=== PATIENT | male | born 1955 | race Caucasian/White ===

== ENCOUNTER → 2017-10-17 10:42 | Emergency (ER) | payer BC ==
[~2017-10-17 10:42] MED LIST: Ketorolac INJ* 30 MG/ML 1 ML VIAL IM ONE
[2017-10-17 11:18] VITALS: BP 156/100
--- NOTE | 2017-10-17 12:05 | UC ---
Back Pain HPI - HPI Summary HPI Summary: Pt presents with left rib and lower back pain. He tells me that 6 days ago he was carrying food and tripped over a plant on the ground. Landed on his left side ribs, had immediate pain. Pain improved as the day continued. Yesterday he felt the pain worsen in his left side and wants to be sure he didn't "break a rib". He has not been taking anything for the pain. He denies headache, dizziness, SOB, chest pain, or cough. He also complains of LBP, but this is unrelated to the recent fall. He has had chronic low back pain for years, but recently has been "acting up" more than usual. Feels tight with dull aches at times. Worse with movement. No bowel or bladder incontinence. No numbness, tingling, or radiation of pain. - History of Current Complaint Hx Obtained From: Patient Onset/Duration: Sudden Onset Timing: Constant Severity Initially: Mild Severity Currently: Mild Pain Intensity: 3 Pain Scale Used: 0-10 Numeric Character: Sharp, Dull, Aching <David Colindres - Last Filed: 10/17/17 15:13> <Yaquelin Phillip - Last Filed: 10/18/17 14:32> - History of Current Complaint Chief Complaint: UCTrauma Stated Complaint: POSS BROKEN RIB Time Seen by Provider: 10/17/17 12:04 - Allergies/Home Medications Allergies/Adverse Reactions: Allergies Allergy/AdvReac Type Severity Reaction Status Date / Time No Known Allergies Allergy Verified 12/28/15 10:10 PMH/Surg Hx/FS Hx/Imm Hx Previously Healthy: Yes - Surgical History Surgical History: Yes Surgery Procedure, Year, and Place: RIGHT KNEE ARTHROSOCPY X 2. LEFT KNEE ARTHROSCOPY X 1. VASECTOMY. LEFT WRIST WITH PLATE. Left hip replacement 2014 - Social History Lives: With Family Alcohol Use: Daily Alcohol Amount: "a few beers every day " Substance Use Type: None Smoking Status (MU): Never Smoked Tobacco - Immunization History Most Recent Influenza Vaccination: 2014 Most Recent Tetanus Shot: 2005 Most Recent Pneumonia Vaccination: HAS NOT HAD <David Colindres - Last Filed: 10/17/17 15:13> Review of Systems Constitutional: Negative Skin: Negative Eyes: Negative ENT: Negative Respiratory: Negative Cardiovascular: Negative Gastrointestinal: Negative Genitourinary: Negative Neurovascular: Negative Musculoskeletal: Other: - LBP. Left rib pain. Neurological: Negative Psychological: Negative All Other Systems Reviewed And Are Negative: Yes <David Colindres - Last Filed: 10/17/17 15:13> Physical Exam Triage Information Reviewed: Yes Appearance: Well-Appearing, Well-Nourished Vital Signs: Initial Vital Signs Temp 99.1 F 10/17/17 11:08 Pulse 97 10/17/17 11:08 Resp 18 10/17/17 11:08 BP 156/100 10/17/17 11:08 Pulse Ox 98 10/17/17 11:08 Vital Signs Reviewed: Yes Neck: Positive: Supple, No Lymphadenopathy, Other: - NTTP. FROM. Respiratory: Positive: Chest non-tender, Lungs clear, Normal breath sounds, No respiratory distress, No accessory muscle use Cardiovascular: Positive: RRR, No Murmur, Pulses Normal Abdomen Description: Positive: Nontender, No Organomegaly, Soft. Negative: CVA Tenderness (R), CVA Tenderness (L), Distended, Guarding Bowel Sounds: Positive: Present Musculoskeletal: Positive: Strength Intact, ROM Intact, No Edema, Other: - TTP lower paraspinal muscles. Pain with spine flexion. TTP over left ~9th-10th rib. No obvious bony deformities. Neurological: Positive: Alert Psychological: Positive: Age Appropriate Behavior Skin: Negative: rashes, significant lesion(s) <David Colindres - Last Filed: 10/17/17 15:13> Vital Signs: Initial Vital Signs Temp 99.1 F 10/17/17 11:08 Pulse 97 10/17/17 11:08 Resp 18 10/17/17 11:08 BP 156/100 10/17/17 11:08 Pulse Ox 98 10/17/17 11:08 <Yaquelin Phillip - Last Filed: 10/18/17 14:32> Back Pain Course/Dx - Course Course Of Treatment: XRs: IMPRESSION: Lumbar: Bridging syndesmophytes at multiple levels with no evidence of fracture. Straightening of the normal lordosis. Ribs: Negative. Pt advised to take ibuprofen for pain. IM toradol given today. F/u with PCP regarding chronic LBP and HTN. - Differential Dx/Diagnosis Differential Diagnosis/HQI/PQRI: Arthritis, Cauda Equina Syndrome, Herniated Disc, Strain, Sprain, Other Provider Diagnoses: LBP. Rib pain. Fall <David Colindres - Last Filed: 10/17/17 15:13> Discharge <David Colindres - Last Filed: 10/17/17 15:13> <Yaquelin Phillip - Last Filed: 10/18/17 14:32> - Discharge Plan Condition: Stable Disposition: HOME Patient Education Materials: Low Back Strain (ED), Lower Back Exercises (ED), Rib Contusion (ED) Referrals: Anderson Garcia MD [Primary Care Provider] - Additional Instructions: If you develop a fever, SOB, chest pain, new or worsening symptoms - please call your PCP or go to the ED. May take ibuprofen 600mg every 6 hours as needed for pain Your blood pressure was high at todays visit. Please see your primary provider within 4 weeks for recheck and re-evaluation. Attestation Statement User Type: Provider - I was available for consult. This patient was seen by the BR[facility]GETTE. The patient was not presented to, seen by, or examined by me. -Pushpa <Yaquelin Phillip - Last Filed: 10/18/17 14:32>
--- NOTE | 2017-10-17 12:34 | RAD ---
Indication: Fall, back pain. 5 views of lumbar spine demonstrates vertebral bodies to be normal in height. Disc space narrowing at T12-L1, L1-L2, L2-L3, L3-L4 and L4-L5 with ventral osteophyte formation is noted. Pedicles appear intact. There is straightening of the normal lordosis. IMPRESSION: Bridging syndesmophytes at multiple levels with no evidence of fracture. Straightening of the normal lordosis.
--- NOTE | 2017-10-17 12:39 | RAD ---
Indication: Left rib pain. 3 views of left ribs demonstrate no fracture. No significant displacement is noted. PA view of the chest demonstrates no pneumothorax. IMPRESSION: No fracture of left ribs is identified.
== END | disposition home or self-care (01) ==
LOC: UCEAST 10:42
DX: M54.5 Low back pain (principal); R07.81 Pleurodynia; Z72.89 Other problems related to lifestyle; W01.0XXA Fall on same level from slipping, tripping and stumbling without subsequent striking against object, initial encounter; Y93.01 Activity, walking, marching and hiking; Y92.9 Unspecified place or not applicable; Y99.9 Unspecified external cause status
CPT/HCPCS: 72110; 96372; 99211; G0463; J1885

== ENCOUNTER 2019-01-08 08:28 | Emergency (ER) | payer BC ==
--- NOTE | 2019-01-08 09:56 | UC ---
Respiratory Complaint HPI - HPI Summary HPI Summary: 1 MONTH OF COUGH AND CHEST CONGESTION. FEELS TIGHT AND OCCASIONALLY WHEEZY. NO FEVER, NAUSEA. DENIES SHORTNESS OF BREATH. DENIES CHEST PAIN. NO SWEATS. IS REQUESTING CHEST X-RAY. STATES HE HAS WORKED FOR MANY YEARS IN [employer] WITH CHEMICALS, FUMES AND ASBESTOS. - History of Current Complaint Chief Complaint: UCRespiratory Stated Complaint: COUGH CHEST CONGESTION Time Seen by Provider: 01/08/19 09:25 Hx Obtained From: Patient Onset/Duration: Gradual Onset, Lasting Weeks, Still Present Timing: Constant Severity Initially: Moderate Severity Currently: Moderate Pain Intensity: 4 Pain Scale Used: 0-10 Numeric Character: Cough: Nonproductive Aggravating Factors: Nothing Alleviating Factors: Nothing Associated Signs And Symptoms: Positive: Pleuritic Chest Pain, Wheezing. Negative: Dyspnea, Fever, URI, Nasal Congestion - Allergies/Home Medications Allergies/Adverse Reactions: Allergies Allergy/AdvReac Type Severity Reaction Status Date / Time No Known Allergies Allergy Verified 01/08/19 08:57 PMH/Surg Hx/FS Hx/Imm Hx Cardiovascular History: Hypertension - Surgical History Surgical History: Yes Surgery Procedure, Year, and Place: RIGHT KNEE ARTHROSOCPY X 2. LEFT KNEE ARTHROSCOPY X 1. VASECTOMY. LEFT WRIST WITH PLATE. Left hip replacement 2014 - Family History Known Family History: Positive: Non-Contributory - Social History Alcohol Use: Daily Alcohol Amount: "a few beers every day " Substance Use Type: None Smoking Status (MU): Never Smoked Tobacco - Immunization History Most Recent Influenza Vaccination: 2014 Most Recent Tetanus Shot: 2005 Most Recent Pneumonia Vaccination: HAS NOT HAD Review of Systems All Other Systems Reviewed And Are Negative: Yes Constitutional: Positive: Negative ENT: Positive: Negative Respiratory: Positive: Cough, Other - WHEEZE. Negative: Shortness Of Breath Cardiovascular: Positive: Negative Gastrointestinal: Positive: Negative Physical Exam Triage Information Reviewed: Yes Appearance: Well-Appearing, No Pain Distress, Well-Nourished Vital Signs: Initial Vital Signs Temp 99.5 F 01/08/19 08:53 Pulse 110 01/08/19 08:53 Resp 18 01/08/19 08:53 BP 156/88 01/08/19 08:53 Pulse Ox 98 01/08/19 08:53 Vital Signs Reviewed: Yes Eyes: Positive: Conjunctiva Clear ENT: Positive: Hearing grossly normal, Pharynx normal, TMs normal Neck: Positive: Supple, Nontender, No Lymphadenopathy Respiratory Exam: Normal Cardiovascular Exam: Normal Abdomen Description: Positive: Soft Musculoskeletal: Positive: No Edema Neurological: Positive: Alert Psychological: Positive: Age Appropriate Behavior Skin: Negative: Rashes UC Diagnostic Evaluation - Laboratory O2 Sat by Pulse Oximetry: 98 Diagnostic Studies Comment: CXR - HYPERINFLATION, CONSISTENT WITH COPD. NO ACTIVE CARDIOPULMONARY DISEASE. Respiratory Course/Dx - Course Course Of Treatment: CXR SHOWS CHANGES CONSISTENT WITH COPD. PATIENT HAS NEVER BEEN A SMOKER BUT STATES HE WORKED FOR MANY YEARS IN [employer] EXPOSED TO CHEMICALS, FUMES AND ASBESTOS. ADVISED FOLLOW-UP WITH HIS PCP. HE MAY BENEFIT FROM MORE ADVANCED IMAGING AND CERTAINLY A WORKUP FOR COPD. HAVE GIVEN HIM ANTIBIOTICS DUE TO PROLONGED NATURE OF COUGH AND ALBUTEROL INHALER. - Differential Dx/Diagnosis Provider Diagnosis: Cough in adult Discharge - Sign-Out/Discharge Documenting (check all that apply): Patient Departure All imaging exams completed and their final reports reviewed: Yes - Discharge Plan Condition: Stable Disposition: HOME Prescriptions: Albuterol HFA INHALER* [Ventolin HFA Inhaler*] 2 puff INH Q4H PRN #1 mdi PRN Reason: Shortness Of Breath Azithromyxin JESSICA (NF) [Z-Jessica (Zithromax) 250 mg tabs #6] 2 tab PO .TODAY, THEN 1 DAILY #6 tab Inhaler, Assist Devices [Aerochamber Mini] 1 each MC Q4H PRN #1 spacer PRN Reason: Cough Patient Education Materials: Chronic Cough (ED) Referrals: Anderson Garcia MD [Primary Care Provider] - 1 Week Additional Instructions: CHEST XRAY TODAY SHOWS HYPERINFLATION, CONSISTENT WITH COPD. YOU HAD SLIGHT IMPROVEMENT AFTER THE NEBULIZER TREATMENT. WILL GIVE INHALER TO USE NEEDED. ZPAK TO COVER FOR POSSIBLE INFECTIOUS ETIOLOGY. FOLLOW-UP WITH YOUR PCP FOR FURTHER EVALUATION OF POSSIBLE COPD AND PROLONGED COUGH. - Billing Disposition and Condition Condition: STABLE Disposition: Home
[2019-01-08] MEDS ORDERED: Ipratropium 0.5MG/2.5ML NEB* 0.5 MG/2.5 ML NEB.SOLN INH ONE (10:05)
[2019-01-08] MEDS ORDERED: Albuterol 2.5 MG/3 ML NEB.SOL* (0.083%) INH ONE (10:05)
[2019-01-08 11:19] VITALS: BP 150/93
== END 2019-01-08 11:20 | disposition home or self-care (01) ==
LOC: UCEAST 08:28
DX: R05 Cough (principal); I10 Essential (primary) hypertension; R06.2 Wheezing; R07.81 Pleurodynia; R09.89 Other specified symptoms and signs involving the circulatory and respiratory systems
CPT/HCPCS: 71046; 99213; G0463

== ENCOUNTER 2024-01-11 05:50 | Observation (INO) ==
[~2024-01-11 05:50] MED LIST changes: -Ketorolac INJ* 30 MG/ML 1 ML VIAL IM ONE; +Metoclopramide 5 MG/ML VIAL (10 mg) IV PRN; +NS 0.45% 1000 ml BAG 1,000 ML IV SCH; +Naloxone 0.4 mg VIAL 0.4 mg/ml 1 ml VIAL IV PRN; +Ondansetron 4 mg VIAL 2 MG/ML 2 ml VIAL IV PRN
[2024-01-11] MEDS ORDERED: Tranexamic Acid 1 GM/100ML BAG 2,000 MG/200 ML BAG IV ONE (06:12)
[2024-01-11] MEDS ORDERED: ceFAZolin 2 GM PREMIX 2 GM/50 ML BAG ONE (06:12)
[2024-01-11 06:33] LABS: Rapid COVID-19 Molecular Undetected (Undetected)
[2024-01-11] MEDS: Lactated Ringers 1000 ml BAG 1,000 ML IV SCH ×2 (06:36→14:41)
[2024-01-11] MEDS ORDERED: fentaNYL 100 mcg/2 ml 50 MCG/ML VIAL ONE ×4 (07:01→12:33)
[2024-01-11] MEDS ORDERED: Midazolam 2 mg/2 ml VIAL 1 mg/ml 2 ml VIAL (2 mg) ONE ×2 (07:01→08:24)
[2024-01-11] MEDS ORDERED: Dexamethasone IV 4 MG/ML VIAL 1 ml VIAL ONE ×2 (07:02→08:24)
[2024-01-11] MEDS ORDERED: Lidocaine 2% PF 5 ML VIAL ONE (07:02)
[2024-01-11] MEDS ORDERED: Ondansetron 4 mg VIAL 2 MG/ML 2 ml VIAL ONE (07:02)
[2024-01-11] MEDS ORDERED: Propofol 10 MG/ML 20 ML BTL ONE (07:03)
[2024-01-11] MEDS ORDERED: ROPIVACAINE 5 MG/ML 30 ML BTL (0.5%) ONE ×2 (08:24→08:53)
[2024-01-11] MEDS ORDERED: Magnesium Hydroxide LIQ 30 ML UDC PO PRN (12:18)
[2024-01-11] MEDS ORDERED: Ondansetron 4 mg VIAL 2 MG/ML 2 ml VIAL IV PRN (12:18)
[2024-01-11] MEDS ORDERED: Ondansetron ODT 4 mg TAB 4 MG TAB PO PRN (12:18)
[2024-01-11] MEDS ORDERED: Lactulose 30 ml UDC PO PRN (12:18)
[2024-01-11] MEDS ORDERED: Morphine 2 MG/ML SYRINGE IV PRN (12:18)
[2024-01-11] MEDS: fentaNYL 100 mcg/2 ml 50 MCG/ML VIAL IV PRN (12:35)
[2024-01-11] MEDS: Acetaminophen IV 1 GM/100ML 1,000 MG/100 ML BAG IV ONE (14:38)
[2024-01-11] MEDS: Buffered Lidocaine 1% SYRIN 1 ml INTRADERM ONE (14:38)
[2024-01-11 15:54] VITALS: BP 168/93
[2024-01-11] MEDS: Scopolamine 1 mg/72hr PATCH TRANSDERM ONE (16:08)
[2024-01-11] MEDS: ceFAZolin 1 GM ADVAN 1 GM in NS 0.9% 50 ML 50 ML IVPB SCH (17:13)
[2024-01-11] MEDS ORDERED: Magnesium Hydroxide LIQ 30 ML UDC PO SCH (21:00)
[2024-01-12] MEDS ORDERED: Vitamin THERAPEUTIC TAB PO SCH (09:00)
== END 2024-01-11 18:30 | disposition home or self-care (01) ==
LOC: OR 05:50 → SSU 05:50
PROVIDERS: ADMIT Orthopaedic Surgery Adult Reconstructive Orthopaedic Surgery; ATTEND Orthopaedic Surgery Adult Reconstructive Orthopaedic Surgery